=== PATIENT | male | born 1945 | race Caucasian/White ===

== ENCOUNTER 2021-11-09 23:34 | Inpatient (IN) | payer MEDICARE, BC ==
[2021-11-10 01:12] LABS: #Eosinphils 0.4 10x3/uL (0.0-0.5); #Monocytes 0.5 10x3/uL (0.0-1.1); #Neutrophils 3.6 10x3/uL (1.5-8.4); %Eosinophils 7.8 % (0.0-6.0); %Lymphocytes 16.9 % (18.0-47.0); %Monocytes 8.6 % (0.0-10.0); %Neutrophils 66.2 % (40.0-75.0); Hemoglobin 10.8 g/dL (13.5-17.5); Mean Corpuscular HGB CONC 34.2 g/dL (32.0-36.0); Mean Corpuscular Hemoglobin 32.9 pg (27.0-33.0); Mean Corpuscular Volume 96.3 fl (81.2-95.1); Mean Platelet Volume 10.4 fl (7.4-10.4); Platelet Count 154 10x3/uL (150-450); RBC Distribution Width 14.8 % (11.5-14.5); Red Blood Cell (RBC) Count 3.28 10x6/uL (4.32-5.72); White Blood Cell (WBC) Count 5.5 10x3/uL (3.5-10.5)
[2021-11-10 01:19] LABS: INR-International Normal Ratio 1.1; PTT 28.7 sec (22.0-33.0)
[2021-11-10 01:25] LABS: ALT (SGPT) 11 U/L (8-55); AST (SGOT) 24 U/L (5-34); Albumin 3.6 g/dL (3.4-4.8); Alkaline Phosphatase 62 U/L (40-110); Anion Gap 14 mmol/L (10-20); BUN (Urea Nitrogen) 36 mg/dL (8.4-25.7); Bilirubin, Total 0.4 mg/dL (0.2-1.2); Calc. Creatinine Clearance 0 mL/min (70-130); Calcium 8.5 mg/dL (7.8-10.44); Carbon Dioxide 21 mmol/L (23-31); Chloride 111 mmol/L (98-107); Globulin 2.7 g/dL (2.4-3.5); Glucose 219 mg/dL (83-110); Potassium 4.7 mmol/L (3.5-5.1); Protein, Total 6.3 g/dL (5.8-8.1); Sodium 141 mmol/L (136-145)
[2021-11-10] MEDS ORDERED: Lorazepam 2 MG/ML VIAL ONE (02:08)
[2021-11-10] MEDS ORDERED: Pantoprazole 40 MG VIAL ONE (02:08)
[2021-11-10] MEDS ORDERED: Dextrose 5% in Water 1,000 ML IV PRN (02:12)
[2021-11-10] MEDS ORDERED: Guaifenesin DM 100-10/5 ML UDCUP PO PRN (02:12)
[2021-11-10] MEDS ORDERED: Ondansetron PF 4 MG/2 ML Vial IVP PRN (02:12)
[2021-11-10] MEDS ORDERED: Calcium Carbonate 500 MG ChewTAB PO PRN (02:12)
[2021-11-10] MEDS ORDERED: Acetaminophen 325 MG TAB PO PRN (02:12)
[2021-11-10] MEDS ORDERED: Senokot S 8.6-50 MG TAB PO PRN (02:12)
[2021-11-10] MEDS ORDERED: Dextrose 50% Abboject 50 ML SYRINGE SLOW IVP PRN (02:12)
[2021-11-10] MEDS ORDERED: HumaLOG 300 UNITS/3 ML VIAL SC PRN (02:12)
[2021-11-10] MEDS ORDERED: Lactated Ringer's 1,000 ML IV SCH (02:15)
[2021-11-10 03:58] LABS: SARS-CoV-2 NAA Rapid Test Not Detected (NotDetected)
[2021-11-10 04:18] LABS: #Eosinphils 0.4 10x3/uL (0.0-0.5); #Monocytes 0.6 10x3/uL (0.0-1.1); %Basophils 0.2 % (0.0-2.0); %Eosinophils 7.2 % (0.0-6.0); %Lymphocytes 18.1 % (18.0-47.0); %Monocytes 9.3 % (0.0-10.0); Hemoglobin 10.7 g/dL (13.5-17.5); Mean Corpuscular HGB CONC 34.1 g/dL (32.0-36.0); Mean Corpuscular Hemoglobin 33.2 pg (27.0-33.0); Mean Corpuscular Volume 97.5 fl (81.2-95.1); Mean Platelet Volume 10.7 fl (7.4-10.4); Platelet Count 155 10x3/uL (150-450); RBC Distribution Width 14.9 % (11.5-14.5); Red Blood Cell (RBC) Count 3.22 10x6/uL (4.32-5.72); White Blood Cell (WBC) Count 6.1 10x3/uL (3.5-10.5)
[2021-11-10 04:36] LABS: Anion Gap 14 mmol/L (10-20); BUN (Urea Nitrogen) 38 mg/dL (8.4-25.7); Calc. Creatinine Clearance 0 mL/min (70-130); Calcium 8.8 mg/dL (7.8-10.44); Carbon Dioxide 21 mmol/L (23-31); Chloride 111 mmol/L (98-107); Glucose 147 mg/dL (83-110); Iron 73 ug/dL (65-175); Iron Binding Capacity, Total 370 mcg/dL (261-462); Potassium 4.9 mmol/L (3.5-5.1); Sodium 141 mmol/L (136-145)
[2021-11-10 04:44] VITALS: BMI 30.9
[2021-11-10 04:51] LABS: Ferritin 169.49 ng/mL (22-322)
[2021-11-10] MEDS: Sodium Chloride 0.45% 1,000 ML IV SCH (06:27)
[2021-11-10] MEDS ORDERED: Levothyroxine Sodium 75 MCG TAB PO SCH (06:45)
[2021-11-10] MEDS: Loratadine 10 MG TAB PO SCH (08:50)
[2021-11-10] MEDS: Carvedilol 3.125 MG TAB PO SCH ×2 (08:50→18:17)
[2021-11-10] MEDS: Lorazepam 1 MG TAB PO SCH ×2 (08:50→20:57)
[2021-11-10] MEDS: Pantoprazole 40 MG VIAL IVP SCH ×2 (08:50→20:57)
[2021-11-10 09:00] LABS: #Eosinphils 0.4 10x3/uL (0.0-0.5); #Monocytes 0.6 10x3/uL (0.0-1.1); #Neutrophils 3.5 10x3/uL (1.5-8.4); %Basophils 0.2 % (0.0-2.0); %Eosinophils 7.3 % (0.0-6.0); %Lymphocytes 20.3 % (18.0-47.0); %Monocytes 10.9 % (0.0-10.0); Hemoglobin 10.1 g/dL (13.5-17.5); Mean Corpuscular HGB CONC 34.5 g/dL (32.0-36.0); Mean Corpuscular Volume 95.8 fl (81.2-95.1); Mean Platelet Volume 10.9 fl (7.4-10.4); Platelet Count 155 10x3/uL (150-450); RBC Distribution Width 14.7 % (11.5-14.5); Red Blood Cell (RBC) Count 3.06 10x6/uL (4.32-5.72); White Blood Cell (WBC) Count 5.8 10x3/uL (3.5-10.5)
[2021-11-10] MEDS ORDERED: Fenofibrate Nanocrystallized 145 MG TAB PO SCH (09:00)
[2021-11-10] MEDS ORDERED: Furosemide 20 MG TAB PO SCH (09:00)
[2021-11-10 14:36] LABS: Hemoglobin 9.5 g/dL (13.5-17.5)
[2021-11-10 15:34] LABS: #Eosinphils 0.3 10x3/uL (0.0-0.5); #Monocytes 0.5 10x3/uL (0.0-1.1); #Neutrophils 3.4 10x3/uL (1.5-8.4); %Basophils 0.2 % (0.0-2.0); %Eosinophils 6.3 % (0.0-6.0); %Lymphocytes 19.3 % (18.0-47.0); %Monocytes 8.8 % (0.0-10.0); %Neutrophils 65.2 % (40.0-75.0); Mean Corpuscular HGB CONC 33.9 g/dL (32.0-36.0); Mean Corpuscular Hemoglobin 32.8 pg (27.0-33.0); Mean Corpuscular Volume 96.7 fl (81.2-95.1); Mean Platelet Volume 10.7 fl (7.4-10.4); Platelet Count 161 10x3/uL (150-450); RBC Distribution Width 14.6 % (11.5-14.5); Red Blood Cell (RBC) Count 3.05 10x6/uL (4.32-5.72); White Blood Cell (WBC) Count 5.2 10x3/uL (3.5-10.5)
[2021-11-10 20:07] LABS: Hemoglobin 9.7 g/dL (13.5-17.5)
[2021-11-10] MEDS: Montelukast Sodium 10 mg Tablet PO SCH (20:56)
[2021-11-10] MEDS: Fenofibrate Nanocrystallized 145 MG TAB PO SCH (20:57)
[2021-11-10] MEDS: Atorvastatin Calcium 10 MG TAB PO SCH (20:57)
[2021-11-10 21:12] LABS: #Eosinphils 0.3 10x3/uL (0.0-0.5); #Monocytes 0.5 10x3/uL (0.0-1.1); #Neutrophils 3.3 10x3/uL (1.5-8.4); %Eosinophils 6.1 % (0.0-6.0); %Lymphocytes 18.2 % (18.0-47.0); %Monocytes 9.1 % (0.0-10.0); %Neutrophils 66.2 % (40.0-75.0); Hemoglobin 10.2 g/dL (13.5-17.5); Mean Corpuscular HGB CONC 34.6 g/dL (32.0-36.0); Mean Corpuscular Hemoglobin 32.9 pg (27.0-33.0); Mean Corpuscular Volume 95.2 fl (81.2-95.1); Mean Platelet Volume 10.4 fl (7.4-10.4); Platelet Count 142 10x3/uL (150-450); RBC Distribution Width 14.7 % (11.5-14.5)
[2021-11-10] MEDS: Zolpidem Tartrate 5 MG TAB PO PRN (23:44)
[2021-11-11 01:52] LABS: Hemoglobin 9.9 g/dL (13.5-17.5)
[2021-11-11] MEDS ORDERED: GoLYTELY 4,000 ml Bottle PO SCH (05:00)
[2021-11-11] MEDS: Sodium Chloride 0.45% 1,000 ML IV SCH (05:47)
[2021-11-11] MEDS: Levothyroxine Sodium 75 MCG TAB PO SCH (05:55)
[2021-11-11] MEDS: Carvedilol 3.125 MG TAB PO SCH ×2 (08:51→18:54)
[2021-11-11] MEDS: Loratadine 10 MG TAB PO SCH (08:51)
[2021-11-11] MEDS: Pantoprazole 40 MG VIAL IVP SCH ×2 (08:51→21:01)
[2021-11-11] MEDS: Lorazepam 1 MG TAB PO SCH ×2 (08:51→21:00)
[2021-11-11] MEDS ORDERED: FLU VACC QS2021-22(65YR UP)/PF 240 MCG/0.7 ML SYRINGE IM ONE (09:00)
[2021-11-11 10:34] LABS: Hemoglobin 9.7 g/dL (13.5-17.5)
[2021-11-11 13:28] LABS: Hemoglobin 9.8 g/dL (13.5-17.5)
[2021-11-11] MEDS ORDERED: PROPOFOL 20 ML ONE (13:37)
[2021-11-11] MEDS ORDERED: Glycopyrrolate 0.2 MG/ML 5 ML SYRINGE ONE (13:37)
[2021-11-11] MEDS ORDERED: Lidocaine 1% PF 5 ML VIAL ONE (13:37)
[2021-11-11] MEDS ORDERED: Fentanyl 100 MCG/2 ML VIAL ONE (14:17)
[2021-11-11] MEDS ORDERED: PHENYLEPHRINE-NS 100 MCG/ML 10 ML SYRINGE ONE (14:34)
[2021-11-11 19:43] LABS: Hemoglobin 9.3 g/dL (13.5-17.5)
[2021-11-11] MEDS: Zolpidem Tartrate 5 MG TAB PO PRN (20:59)
[2021-11-11] MEDS: Apixaban 5 MG TAB PO SCH (20:59)
[2021-11-11] MEDS: Montelukast Sodium 10 mg Tablet PO SCH (20:59)
[2021-11-11] MEDS: Fenofibrate Nanocrystallized 145 MG TAB PO SCH (20:59)
[2021-11-11] MEDS: Atorvastatin Calcium 10 MG TAB PO SCH (21:00)
[2021-11-11 23:03] LABS: Hemoglobin 9.2 g/dL (13.5-17.5)
[2021-11-12 01:06] LABS: Bilirubin Neg (Negative); Blood, Urine Negative (Negative); Clarity Clear (Clear); Glucose, Urine (Dipstick) Normal (Negative); Ketone, Urine Negative (Negative); Leukocyte Negative (Negative); Nitrite Negative (Negative); Protein, Urine (Dipstick) Negative (Neg-Trace); Urobilinogen Normal mg/dL (Less than 2); pH, Urine 6.5 (5.0-9.0)
[2021-11-12 01:09] LABS: Urine Culture Reflex No No
[2021-11-12 01:12] LABS: Bacteria/HPF None Seen HPF (None Seen); RBC/HPF 0-3 HPF (0-3); Squamous Epithelial 0-3 HPF (0-3); WBC/HPF 0-3 HPF (0-3)
[2021-11-12] MEDS: HYDROcodone/Acetaminophen 5/325 mg Tablet PO PRN ×2 (02:15→05:40)
[2021-11-12 04:16] LABS: #Eosinphils 0.2 10x3/uL (0.0-0.5); #Monocytes 0.5 10x3/uL (0.0-1.1); #Neutrophils 3.2 10x3/uL (1.5-8.4); %Basophils 0.2 % (0.0-2.0); %Eosinophils 4.3 % (0.0-6.0); %Lymphocytes 22.9 % (18.0-47.0); %Monocytes 10.5 % (0.0-10.0); %Neutrophils 61.7 % (40.0-75.0); Mean Corpuscular HGB CONC 33.8 g/dL (32.0-36.0); Mean Corpuscular Hemoglobin 32.5 pg (27.0-33.0); Mean Platelet Volume 10.7 fl (7.4-10.4); Platelet Count 137 10x3/uL (150-450); RBC Distribution Width 14.4 % (11.5-14.5); Red Blood Cell (RBC) Count 2.77 10x6/uL (4.32-5.72); White Blood Cell (WBC) Count 5.2 10x3/uL (3.5-10.5)
[2021-11-12] MEDS: Levothyroxine Sodium 75 MCG TAB PO SCH (05:42)
[2021-11-12 08:27] VITALS: TEMP 97.3
[2021-11-12] MEDS: Lorazepam 1 MG TAB PO SCH (08:54)
[2021-11-12] MEDS: Apixaban 5 MG TAB PO SCH (08:54)
[2021-11-12] MEDS: Loratadine 10 MG TAB PO SCH (08:54)
[2021-11-12] MEDS: Carvedilol 3.125 MG TAB PO SCH (08:54)
[2021-11-12] MEDS: Pantoprazole 40 MG VIAL IVP SCH (08:54)
[2021-11-12 11:54] VITALS: BP 119/59
== END 2021-11-12 14:02 | disposition home or self-care (01) | DRG 378 ==
LOC: CSHERS 23:34 → CSHTELE 11-10 04:41
PROVIDERS: ADMIT Family Medicine; ATTEND Family Medicine
PROC: 0DJ08ZZ Inspection of Upper Intestinal Tract, Via Natural or Artificial Opening Endoscopic (ICD-10-PCS; principal; 2021-11-11)
PROC: 0DJD8ZZ Inspection of Lower Intestinal Tract, Via Natural or Artificial Opening Endoscopic (ICD-10-PCS; 2021-11-11)
DX: K29.51 Unspecified chronic gastritis with bleeding (principal); I50.22 Chronic systolic (congestive) heart failure; D62 Acute posthemorrhagic anemia; I13.0 Hypertensive heart and chronic kidney disease with heart failure and stage 1 through stage 4 chronic kidney disease, or unspecified chronic kidney disease; I48.0 Paroxysmal atrial fibrillation; I25.10 Atherosclerotic heart disease of native coronary artery without angina pectoris; Z20.822 Contact with and (suspected) exposure to COVID-19; E78.5 Hyperlipidemia, unspecified; I25.5 Ischemic cardiomyopathy; E11.22 Type 2 diabetes mellitus with diabetic chronic kidney disease; J44.9 Chronic obstructive pulmonary disease, unspecified; N18.31 Chronic kidney disease, stage 3a; M10.9 Gout, unspecified; E03.9 Hypothyroidism, unspecified; F41.1 Generalized anxiety disorder; Z90.49 Acquired absence of other specified parts of digestive tract; Z95.810 Presence of automatic (implantable) cardiac defibrillator; Z95.2 Presence of prosthetic heart valve; Z95.1 Presence of aortocoronary bypass graft; Z79.82 Long term (current) use of aspirin; Z79.01 Long term (current) use of anticoagulants; Z79.899 Other long term (current) drug therapy; Z79.4 Long term (current) use of insulin; Z79.890 Hormone replacement therapy; Z88.0 Allergy status to penicillin; Z88.2 Allergy status to sulfonamides; Z88.1 Allergy status to other antibiotic agents; Z88.8 Allergy status to other drugs, medicaments and biological substances; Z79.84 Long term (current) use of oral hypoglycemic drugs; Z95.5 Presence of coronary angioplasty implant and graft; Z90.89 Acquired absence of other organs; Z87.891 Personal history of nicotine dependence
CPT/HCPCS: 36415; 36416; 80053; 81001; 82274; 82607; 82728; 82746; 83540; 83550; 85014; 85018; 85025; 85610; 85730; 86850; 86900; 86901; 93005; 94760; C9113; J2060; J2704; J3010; J7120; J7620; U0002

== ENCOUNTER 2022-06-17 21:04 | Emergency (ER) | payer MEDICARE, BC ==
[2022-06-17 22:23] LABS: #Eosinphils 0.5 10x3/uL (0.0-0.5); #Monocytes 0.4 10x3/uL (0.0-1.1); #Neutrophils 1.9 10x3/uL (1.5-8.4); %Basophils 0.3 % (0.0-2.0); %Eosinophils 13.4 % (0.0-6.0); %Lymphocytes 20.5 % (18.0-47.0); %Monocytes 11.1 % (0.0-10.0); %Neutrophils 54.4 % (40.0-75.0); Mean Corpuscular HGB CONC 34.8 g/dL (32.0-36.0); Mean Corpuscular Hemoglobin 32.4 pg (27.0-33.0); Mean Corpuscular Volume 93.2 fl (81.2-95.1); Mean Platelet Volume 10.7 fl (7.4-10.4); Platelet Count 129 10x3/uL (150-450); Red Blood Cell (RBC) Count 3.39 10x6/uL (4.32-5.72); White Blood Cell (WBC) Count 3.5 10x3/uL (3.5-10.5)
[2022-06-17 22:36] LABS: ALT (SGPT) 22 U/L (8-55); AST (SGOT) 36 U/L (5-34); Albumin 3.7 g/dL (3.4-4.8); Alkaline Phosphatase 50 U/L (40-110); Anion Gap 14 mmol/L (10-20); BUN (Urea Nitrogen) 56 mg/dL (8.4-25.7); Bilirubin, Total 0.4 mg/dL (0.2-1.2); Calc. Creatinine Clearance 0 mL/min (70-130); Calcium 8.8 mg/dL (7.8-10.44); Carbon Dioxide 17 mmol/L (23-31); Chloride 111 mmol/L (98-107); Estimated GFR 37; Globulin 2.6 g/dL (2.4-3.5); Glucose 244 mg/dL (83-110); Protein, Total 6.3 g/dL (5.8-8.1); Sodium 137 mmol/L (136-145)
[2022-06-17 23:01] LABS: CKMB 3.9 ng/mL (0-6.6)
[2022-06-18 00:06] LABS: Troponin I 0.033 ng/mL (< 0.028)
== END 2022-06-18 00:10 | disposition home or self-care (01) ==
LOC: CSHERS 21:04
DX: K94.01 Colostomy hemorrhage (principal); E78.00 Pure hypercholesterolemia, unspecified; E11.9 Type 2 diabetes mellitus without complications; I11.0 Hypertensive heart disease with heart failure; I50.9 Heart failure, unspecified; J44.9 Chronic obstructive pulmonary disease, unspecified; Z87.891 Personal history of nicotine dependence; Z79.4 Long term (current) use of insulin; Z79.899 Other long term (current) drug therapy
CPT/HCPCS: 36415; 71045; 80053; 82553; 83880; 84484; 85025; 93005

== ENCOUNTER 2022-07-02 10:12 | Emergency (ER) | payer MEDICARE, BC ==
[2022-07-02] MEDS ORDERED: Pantoprazole 40 MG VIAL ONE (11:22)
[2022-07-02 11:24] LABS: #Eosinphils 0.3 10x3/uL (0.0-0.5); #Monocytes 0.4 10x3/uL (0.0-1.1); #Neutrophils 2.5 10x3/uL (1.5-8.4); %Basophils 0.3 % (0.0-2.0); %Eosinophils 8.6 % (0.0-6.0); %Lymphocytes 15.9 % (18.0-47.0); %Monocytes 9.9 % (0.0-10.0); Hemoglobin 10.1 g/dL (13.5-17.5); Mean Corpuscular Hemoglobin 32.3 pg (27.0-33.0); Mean Corpuscular Volume 94.9 fl (81.2-95.1); Platelet Count 168 10x3/uL (150-450); RBC Distribution Width 13.3 % (11.5-14.5); Red Blood Cell (RBC) Count 3.13 10x6/uL (4.32-5.72); White Blood Cell (WBC) Count 3.8 10x3/uL (3.5-10.5)
[2022-07-02 11:42] LABS: ALT (SGPT) 17 U/L (8-55); AST (SGOT) 26 U/L (5-34); Albumin 4.1 g/dL (3.4-4.8); Alkaline Phosphatase 52 U/L (40-110); Anion Gap 12 mmol/L (10-20); BUN (Urea Nitrogen) 53 mg/dL (8.4-25.7); Bilirubin, Total 0.5 mg/dL (0.2-1.2); CK (CPK) 75 U/L (30-200); Calc. Creatinine Clearance 0 mL/min (70-130); Calcium 9.5 mg/dL (7.8-10.44); Carbon Dioxide 20 mmol/L (23-31); Chloride 112 mmol/L (98-107); Estimated GFR 38; Globulin 2.9 g/dL (2.4-3.5); Glucose 183 mg/dL (83-110); Lipase 33 U/L (8-78); Potassium 4.3 mmol/L (3.5-5.1); Sodium 140 mmol/L (136-145)
== END 2022-07-02 12:35 | disposition home or self-care (01) ==
LOC: CSHERS 10:12
DX: K94.01 Colostomy hemorrhage (principal); E78.00 Pure hypercholesterolemia, unspecified; J44.9 Chronic obstructive pulmonary disease, unspecified; E11.9 Type 2 diabetes mellitus without complications; I11.0 Hypertensive heart disease with heart failure; I50.9 Heart failure, unspecified; Z87.891 Personal history of nicotine dependence
CPT/HCPCS: 80053; 82550; 83690; 85025; 86850; 86900; 86901; 96374; C9113

== ENCOUNTER 2023-09-05 17:26 | Inpatient (IN) | payer MEDICARE, BC ==
[2023-09-05] MEDS ORDERED: Acetaminophen 325 MG TAB PO PRN (18:03)
[2023-09-05] MEDS ORDERED: Dextrose 5% in Water 1,000 ML IV PRN (18:10)
[2023-09-05] MEDS ORDERED: Glucagon 1 MG/ML KIT IM PRN (18:10)
[2023-09-05] MEDS ORDERED: Dextrose 50% Abboject 50 ML SYRINGE SLOW IVP PRN (18:10)
[2023-09-05] MEDS ORDERED: HumaLOG 300 UNITS/3 ML VIAL SC PRN ×2 (18:10)
[2023-09-05 18:20] VITALS: BMI 30.7
[2023-09-05 18:52] LABS: #Eosinphils 0.3 10x3/uL (0.0-0.5); #Monocytes 0.5 10x3/uL (0.0-1.1); #Neutrophils 2.6 10x3/uL (1.5-8.4); %Basophils 0.5 % (0.0-2.0); %Eosinophils 6.5 % (0.0-6.0); %Lymphocytes 20.3 % (18.0-47.0); %Monocytes 10.9 % (0.0-10.0); %Neutrophils 61.6 % (40.0-75.0); Hematocrit 35.6 % (38.8-50.0); Hemoglobin 12.1 g/dL (13.5-17.5); Mean Corpuscular Hemoglobin 32.1 pg (27.0-33.0); Mean Corpuscular Volume 94.4 fl (81.2-95.1); Mean Platelet Volume 11.5 fl (7.4-10.4); Platelet Count 145 10x3/uL (150-450); RBC Distribution Width 14.4 % (11.5-14.5); Red Blood Cell (RBC) Count 3.77 10x6/uL (4.32-5.72); White Blood Cell (WBC) Count 4.1 10x3/uL (3.5-10.5)
[2023-09-05 18:59] LABS: ALT (SGPT) 12 U/L (8-55); AST (SGOT) 27 U/L (5-34); Albumin 3.8 g/dL (3.4-4.8); Alkaline Phosphatase 82 U/L (40-110); Anion Gap 14 mmol/L (10-20); BUN (Urea Nitrogen) 50 mg/dL (8.4-25.7); Bilirubin, Total 0.5 mg/dL (0.2-1.2); Calc. Creatinine Clearance 45 mL/min (70-130); Carbon Dioxide 22 mmol/L (23-31); Chloride 109 mmol/L (98-107); Estimated GFR 38; Globulin 3.3 g/dL (2.4-3.5); Glucose 268 mg/dL (83-110); Magnesium 1.6 mg/dL (1.6-2.6); Potassium 4.4 mmol/L (3.5-5.1); Protein, Total 7.1 g/dL (5.8-8.1); Sodium 141 mmol/L (136-145)
[2023-09-05 19:05] LABS: Troponin I 0.171 ng/mL (< 0.028)
[2023-09-05] MEDS ORDERED: Furosemide 20 MG/2 ML VIAL SLOW IVP SCH (21:30)
[2023-09-05] MEDS ORDERED: Lorazepam 1 MG TAB PO PRN (21:31)
[2023-09-05] MEDS ORDERED: Zolpidem Tartrate 5 MG TAB PO PRN (21:31)
[2023-09-06 05:42] LABS: #Eosinphils 0.3 10x3/uL (0.0-0.5); #Monocytes 0.6 10x3/uL (0.0-1.1); #Neutrophils 2.9 10x3/uL (1.5-8.4); %Basophils 0.2 % (0.0-2.0); %Eosinophils 6.8 % (0.0-6.0); %Lymphocytes 21.9 % (18.0-47.0); %Monocytes 11.4 % (0.0-10.0); %Neutrophils 59.5 % (40.0-75.0); Anion Gap 15 mmol/L (10-20); BUN (Urea Nitrogen) 49 mg/dL (8.4-25.7); Calc. Creatinine Clearance 54 mL/min (70-130); Calcium 9.2 mg/dL (7.8-10.44); Carbon Dioxide 22 mmol/L (23-31); Chloride 111 mmol/L (98-107); Estimated GFR 48; Glucose 62 mg/dL (83-110); Hematocrit 35.4 % (38.8-50.0); Hemoglobin 11.8 g/dL (13.5-17.5); Mean Corpuscular HGB CONC 33.3 g/dL (32.0-36.0); Mean Corpuscular Volume 92.9 fl (81.2-95.1); Mean Platelet Volume 11.3 fl (7.4-10.4); Platelet Count 154 10x3/uL (150-450); RBC Distribution Width 14.3 % (11.5-14.5); Red Blood Cell (RBC) Count 3.81 10x6/uL (4.32-5.72); Sodium 144 mmol/L (136-145); White Blood Cell (WBC) Count 4.8 10x3/uL (3.5-10.5)
[2023-09-06] MEDS ORDERED: Ipratropium/Albuterol 3 ML NEB NEB PRN (07:44)
[2023-09-06] MEDS ORDERED: Carvedilol 3.125 MG TAB PO SCH (08:00)
[2023-09-06 08:34] LABS: Troponin I 0.183 ng/mL (< 0.028)
[2023-09-06] MEDS ORDERED: Furosemide 20 MG/2 ML VIAL SLOW IVP SCH (09:00)
[2023-09-06] MEDS ORDERED: Losartan 50 MG TAB PO SCH (09:00)
[2023-09-06] MEDS ORDERED: Apixaban 2.5 MG TAB PO SCH (09:00)
[2023-09-06] MEDS ORDERED: Aspirin Chewable 81 MG TAB PO SCH (09:00)
[2023-09-06] MEDS ORDERED: Cholecalciferol 1,000 UNITS (25 MCG) TAB PO SCH (09:00)
[2023-09-06] MEDS ORDERED: Finasteride 5 MG TAB PO SCH (09:00)
[2023-09-06] MEDS ORDERED: Loratadine 10 MG TAB PO SCH (09:00)
[2023-09-06] MEDS ORDERED: Fluticasone Propionate Nasal Spray 16 gm Bottle NASAL SCH (09:00)
[2023-09-06] MEDS ORDERED: Montelukast Sodium 10 mg Tablet PO SCH ×2 (09:00→21:00)
[2023-09-06] MEDS ORDERED: Furosemide 40 MG/4 ML VIAL SLOW IVP SCH (15:15)
[2023-09-06 16:34] VITALS: BP 108/67; TEMP 98.1
[2023-09-06] MEDS ORDERED: Atorvastatin Calcium 10 MG TAB PO SCH (21:00)
[2023-09-06] MEDS ORDERED: Zolpidem Tartrate 5 MG TAB PO SCH (21:00)
[2023-09-07] MEDS ORDERED: Levothyroxine Sodium 75 MCG TAB PO SCH (06:00)
[2023-09-07] MEDS ORDERED: Ferrous Sulfate 325 MG TAB PO SCH (08:00)
[2023-09-07] MEDS ORDERED: Multivit, Therapeutic 1 TAB PO SCH (09:00)
== END 2023-09-06 17:30 | disposition home or self-care (01) | DRG 293 ==
LOC: INTOOBSV 17:26 → CSHTELE 17:26 → OBSVTOIN 18:03
PROVIDERS: ADMIT Internal Medicine; ATTEND Internal Medicine
DX: I50.23 Acute on chronic systolic (congestive) heart failure (principal); E78.5 Hyperlipidemia, unspecified; F41.9 Anxiety disorder, unspecified; N18.9 Chronic kidney disease, unspecified; E11.22 Type 2 diabetes mellitus with diabetic chronic kidney disease; I25.10 Atherosclerotic heart disease of native coronary artery without angina pectoris; I25.5 Ischemic cardiomyopathy; J44.9 Chronic obstructive pulmonary disease, unspecified; I48.0 Paroxysmal atrial fibrillation; E03.9 Hypothyroidism, unspecified; K21.9 Gastro-esophageal reflux disease without esophagitis; I12.9 Hypertensive chronic kidney disease with stage 1 through stage 4 chronic kidney disease, or unspecified chronic kidney disease; I35.0 Nonrheumatic aortic (valve) stenosis; Z95.810 Presence of automatic (implantable) cardiac defibrillator; Z88.0 Allergy status to penicillin; Z88.2 Allergy status to sulfonamides; Z88.1 Allergy status to other antibiotic agents; Z95.1 Presence of aortocoronary bypass graft; Z95.2 Presence of prosthetic heart valve; Z79.4 Long term (current) use of insulin; Z79.899 Other long term (current) drug therapy; Z79.51 Long term (current) use of inhaled steroids; Z79.01 Long term (current) use of anticoagulants; I25.2 Old myocardial infarction
CPT/HCPCS: 36415; 36416; 80048; 80053; 83735; 83880; 84484; 85025; 93005; 93010; 93306; 94760; J1815; J1940

== ENCOUNTER 2023-10-09 23:43 | Inpatient (IN) | payer MEDICARE, BC ==
[2023-10-10 00:32] LABS: #Eosinphils 0.4 10x3/uL (0.0-0.5); #Monocytes 0.6 10x3/uL (0.0-1.1); #Neutrophils 4.2 10x3/uL (1.5-8.4); %Basophils 0.2 % (0.0-2.0); %Eosinophils 6.7 % (0.0-6.0); %Monocytes 9.3 % (0.0-10.0); Hematocrit 35.2 % (38.8-50.0); Mean Corpuscular HGB CONC 34.1 g/dL (32.0-36.0); Mean Corpuscular Hemoglobin 31.4 pg (27.0-33.0); Mean Corpuscular Volume 92.1 fl (81.2-95.1); Mean Platelet Volume 10.8 fl (7.4-10.4); Platelet Count 187 10x3/uL (150-450); RBC Distribution Width 15.2 % (11.5-14.5); Red Blood Cell (RBC) Count 3.82 10x6/uL (4.32-5.72); White Blood Cell (WBC) Count 6.1 10x3/uL (3.5-10.5)
[2023-10-10 00:42] LABS: ALT (SGPT) 16 U/L (8-55); AST (SGOT) 35 U/L (5-34); Albumin 3.8 g/dL (3.4-4.8); Alkaline Phosphatase 76 U/L (40-110); Anion Gap 17 mmol/L (10-20); BUN (Urea Nitrogen) 48 mg/dL (8.4-25.7); Bilirubin, Total 0.5 mg/dL (0.2-1.2); Calc. Creatinine Clearance 0 mL/min (70-130); Calcium 9.5 mg/dL (7.8-10.44); Carbon Dioxide 16 mmol/L (23-31); Chloride 109 mmol/L (98-107); Estimated GFR 33; Globulin 3.4 g/dL (2.4-3.5); Glucose 137 mg/dL (83-110); Magnesium 1.5 mg/dL (1.6-2.6); Potassium 4.1 mmol/L (3.5-5.1); Protein, Total 7.2 g/dL (5.8-8.1); Sodium 138 mmol/L (136-145)
[2023-10-10 00:49] LABS: Troponin I 0.197 ng/mL (< 0.028)
[2023-10-10] MEDS ORDERED: Magnesium 2 GM/50 ML BAG (IN WATER) ONE (01:02)
[2023-10-10] MEDS ORDERED: Dextrose 50% Abboject 50 ML SYRINGE SLOW IVP PRN (02:41)
[2023-10-10] MEDS ORDERED: Acetaminophen 325 MG TAB PO PRN (02:41)
[2023-10-10] MEDS ORDERED: HumaLOG 300 UNITS/3 ML VIAL SC PRN (02:41)
[2023-10-10] MEDS ORDERED: Glucagon 1 MG/ML KIT IM PRN (02:41)
[2023-10-10] MEDS ORDERED: Dextrose 5% in Water 1,000 ML IV PRN (02:41)
[2023-10-10] MEDS ORDERED: Calcium Carbonate 500 MG ChewTAB PO PRN (02:41)
[2023-10-10] MEDS ORDERED: Senokot S 8.6-50 MG TAB PO PRN (02:41)
[2023-10-10] MEDS ORDERED: Ipratropium/Albuterol 3 ML NEB NEB PRN (02:53)
[2023-10-10 04:17] LABS: #Eosinphils 0.4 10x3/uL (0.0-0.5); #Monocytes 0.6 10x3/uL (0.0-1.1); #Neutrophils 5.5 10x3/uL (1.5-8.4); %Basophils 0.1 % (0.0-2.0); %Eosinophils 4.7 % (0.0-6.0); %Lymphocytes 11.6 % (18.0-47.0); %Monocytes 8.5 % (0.0-10.0); %Neutrophils 74.4 % (40.0-75.0); Hematocrit 34.4 % (38.8-50.0); Hemoglobin 12.1 g/dL (13.5-17.5); Mean Corpuscular HGB CONC 35.2 g/dL (32.0-36.0); Mean Corpuscular Hemoglobin 31.9 pg (27.0-33.0); Mean Corpuscular Volume 90.8 fl (81.2-95.1); Mean Platelet Volume 10.5 fl (7.4-10.4); Platelet Count 188 10x3/uL (150-450); RBC Distribution Width 15.1 % (11.5-14.5); Red Blood Cell (RBC) Count 3.79 10x6/uL (4.32-5.72); White Blood Cell (WBC) Count 7.4 10x3/uL (3.5-10.5)
[2023-10-10 04:22] LABS: Anion Gap 16 mmol/L (10-20); BUN (Urea Nitrogen) 47 mg/dL (8.4-25.7); Calc. Creatinine Clearance 0 mL/min (70-130); Calcium 9.8 mg/dL (7.8-10.44); Carbon Dioxide 18 mmol/L (23-31); Chloride 109 mmol/L (98-107); Estimated GFR 38; Glucose 112 mg/dL (83-110); Magnesium 2.1 mg/dL (1.6-2.6); Sodium 139 mmol/L (136-145)
[2023-10-10 04:35] VITALS: BMI 31.3
[2023-10-10] MEDS ORDERED: Lactated Ringer's 500 ML IV SCH (05:15)
[2023-10-10] MEDS ORDERED: Levothyroxine Sodium 75 MCG TAB PO SCH (06:00)
[2023-10-10] MEDS ORDERED: Ipratropium/Albuterol 3 ML NEB NEB SCH (07:00)
[2023-10-10] MEDS ORDERED: Carvedilol 3.125 MG TAB PO SCH (08:00)
[2023-10-10 08:38] LABS: Troponin I 0.189 ng/mL (< 0.028)
[2023-10-10] MEDS ORDERED: Ferrous Sulfate 325 MG TAB PO SCH (09:00)
[2023-10-10] MEDS ORDERED: Cholecalciferol 1,000 UNITS (25 MCG) TAB PO SCH (09:00)
[2023-10-10] MEDS ORDERED: Apixaban 2.5 MG TAB PO SCH (09:00)
[2023-10-10] MEDS ORDERED: Finasteride 5 MG TAB PO SCH (09:00)
[2023-10-10] MEDS ORDERED: Multivit, Therapeutic 1 TAB PO SCH (09:00)
[2023-10-10] MEDS ORDERED: Pantoprazole 40 MG VIAL IVP SCH (09:00)
[2023-10-10] MEDS ORDERED: Furosemide 40 MG TAB PO SCH (09:00)
[2023-10-10] MEDS ORDERED: glyBURIDE 5 MG TAB PO SCH (09:00)
[2023-10-10] MEDS ORDERED: Loratadine 10 MG TAB PO SCH (09:00)
[2023-10-10] MEDS: Morphine 2 MG/ML VIAL SLOW IVP PRN (10:27)
[2023-10-10] MEDS: Ondansetron PF 4 MG/2 ML Vial IVP PRN ×2 (14:37→20:29)
[2023-10-10] MEDS: Morphine 4 MG/ML VIAL SLOW IVP PRN ×2 (14:37→20:26)
[2023-10-10 16:15] LABS: Bilirubin Neg (Negative); Blood, Urine Negative (Negative); Clarity Clear (Clear); Glucose, Urine (Dipstick) Normal (Negative); Ketone, Urine Negative (Negative); Leukocyte Negative (Negative); Nitrite Negative (Negative); Protein, Urine (Dipstick) Negative (Neg-Trace); Specific Gravity, Urine 1.015 (1.005-1.030); Urobilinogen Normal mg/dL (Less than 2)
[2023-10-10] MEDS ORDERED: Lidocaine Viscous Sol 2% 15 ml UD Cup SSP SCH (17:00)
[2023-10-10 17:31] LABS: Bacteria/HPF Rare-Few HPF (None Seen); RBC/HPF None Seen HPF (0-3); Squamous Epithelial 0-3 HPF (0-3); WBC/HPF 0-3 HPF (0-3)
[2023-10-10] MEDS: Mometasone Furoate 30 PUFF 220 MCG INH SCH (20:55)
[2023-10-10] MEDS ORDERED: Fenofibrate Nanocrystallized 145 MG TAB PO SCH (21:00)
[2023-10-10] MEDS ORDERED: Montelukast Sodium 10 mg Tablet PO SCH (21:00)
[2023-10-10] MEDS ORDERED: Zolpidem Tartrate 5 MG TAB PO SCH (21:00)
[2023-10-10] MEDS ORDERED: Alogliptin 25 MG TAB PO SCH (21:00)
[2023-10-10] MEDS ORDERED: Lorazepam 1 MG TAB PO SCH (21:00)
[2023-10-10] MEDS ORDERED: Atorvastatin Calcium 10 MG TAB PO SCH (21:00)
[2023-10-11] MEDS: Ondansetron PF 4 MG/2 ML Vial IVP PRN (03:41)
[2023-10-11 03:58] LABS: #Monocytes 0.5 10x3/uL (0.0-1.1); #Neutrophils 9.8 10x3/uL (1.5-8.4); %Basophils 0.1 % (0.0-2.0); %Eosinophils 0.3 % (0.0-6.0); %Lymphocytes 6.2 % (18.0-47.0); %Monocytes 4.9 % (0.0-10.0); Hematocrit 38.1 % (38.8-50.0); Hemoglobin 13.3 g/dL (13.5-17.5); Mean Corpuscular HGB CONC 34.9 g/dL (32.0-36.0); Mean Corpuscular Hemoglobin 31.8 pg (27.0-33.0); Mean Corpuscular Volume 91.1 fl (81.2-95.1); Mean Platelet Volume 10.8 fl (7.4-10.4); Platelet Count 209 10x3/uL (150-450); RBC Distribution Width 15.2 % (11.5-14.5); Red Blood Cell (RBC) Count 4.18 10x6/uL (4.32-5.72); White Blood Cell (WBC) Count 11.1 10x3/uL (3.5-10.5)
[2023-10-11 04:21] LABS: Anion Gap 22 mmol/L (10-20); BUN (Urea Nitrogen) 58 mg/dL (8.4-25.7); Calc. Creatinine Clearance 31 mL/min (70-130); Carbon Dioxide 20 mmol/L (23-31); Chloride 101 mmol/L (98-107); Estimated GFR 26; Glucose 212 mg/dL (83-110); Potassium 3.9 mmol/L (3.5-5.1); Sodium 139 mmol/L (136-145)
[2023-10-11 04:29] LABS: Troponin I 0.193 ng/mL (< 0.028)
[2023-10-11] MEDS: Morphine 2 MG/ML VIAL SLOW IVP PRN (11:20)
[2023-10-11] MEDS ORDERED: Digoxin 0.5 MG/2 ML AMP SLOW IVP SCH ×2 (15:15→18:30)
[2023-10-11 16:20] LABS: #Eosinphils 0.1 10x3/uL (0.0-0.5); #Monocytes 0.7 10x3/uL (0.0-1.1); #Neutrophils 6.2 10x3/uL (1.5-8.4); %Eosinophils 0.6 % (0.0-6.0); %Lymphocytes 9.6 % (18.0-47.0); %Monocytes 9.5 % (0.0-10.0); Hematocrit 39.5 % (38.8-50.0); Hemoglobin 13.9 g/dL (13.5-17.5); Mean Corpuscular HGB CONC 35.2 g/dL (32.0-36.0); Mean Platelet Volume 11.1 fl (7.4-10.4); Platelet Count 207 10x3/uL (150-450); RBC Distribution Width 15.4 % (11.5-14.5); Red Blood Cell (RBC) Count 4.34 10x6/uL (4.32-5.72); White Blood Cell (WBC) Count 7.8 10x3/uL (3.5-10.5)
[2023-10-11 16:45] LABS: ALT (SGPT) 17 U/L (8-55); AST (SGOT) 38 U/L (5-34); Albumin 3.8 g/dL (3.4-4.8); Alkaline Phosphatase 55 U/L (40-110); Anion Gap 24 mmol/L (10-20); BUN (Urea Nitrogen) 72 mg/dL (8.4-25.7); Bilirubin, Total 0.7 mg/dL (0.2-1.2); Calc. Creatinine Clearance 22 mL/min (70-130); Calcium 10.1 mg/dL (7.8-10.44); Carbon Dioxide 21 mmol/L (23-31); Chloride 101 mmol/L (98-107); Estimated GFR 18; Globulin 3.7 g/dL (2.4-3.5); Glucose 212 mg/dL (83-110); Potassium 4.2 mmol/L (3.5-5.1); Protein, Total 7.5 g/dL (5.8-8.1); Sodium 142 mmol/L (136-145)
[2023-10-11] MEDS ORDERED: Pantoprazole 40 MG VIAL IVP SCH (18:30)
[2023-10-11] MEDS: Mometasone Furoate 30 PUFF 220 MCG INH SCH (19:30)
[2023-10-11] MEDS: Lactated Ringer's 1,000 ML IV SCH ×2 (20:51→20:52)
[2023-10-12] MEDS ORDERED: Metoprolol Tartrate 5 MG/5 ML VIAL IVP PRN (08:23)
[2023-10-12] MEDS: Digoxin 0.125 MG TAB PO SCH (08:27)
[2023-10-12] MEDS ORDERED: Sodium Chloride 0.9% 1,000 ML IV SCH (08:30)
[2023-10-12] MEDS: Metoprolol Tartrate 5 MG/5 ML VIAL IVP SCH ×4 (08:52→23:31)
[2023-10-12] MEDS ORDERED: Lorazepam 2 MG/ML VIAL SLOW IVP SCH ×2 (10:15→22:30)
[2023-10-12] MEDS: Sodium Chloride 0.9% 1,000 ML IV SCH ×2 (12:24→16:46)
[2023-10-12] MEDS: Mometasone Furoate 30 PUFF 220 MCG INH SCH (19:17)
[2023-10-12] MEDS ORDERED: Acetaminophen 325 MG TAB PO SCH (22:00)
[2023-10-12] MEDS ORDERED: diphenhydrAMINE 25 MG CAP PO SCH (22:00)
[2023-10-12] MEDS: Ondansetron PF 4 MG/2 ML Vial IVP PRN (23:16)
[2023-10-13] MEDS: Metoprolol Tartrate 5 MG/5 ML VIAL IVP SCH ×4 (03:17→22:21)
[2023-10-13 05:01] LABS: #Monocytes 0.7 10x3/uL (0.0-1.1); #Neutrophils 3.8 10x3/uL (1.5-8.4); %Basophils 0.2 % (0.0-2.0); %Eosinophils 0.8 % (0.0-6.0); %Lymphocytes 11.8 % (18.0-47.0); %Monocytes 12.8 % (0.0-10.0); %Neutrophils 74.2 % (40.0-75.0); Hematocrit 37.8 % (38.8-50.0); Mean Corpuscular HGB CONC 34.4 g/dL (32.0-36.0); Mean Corpuscular Hemoglobin 31.5 pg (27.0-33.0); Mean Corpuscular Volume 91.5 fl (81.2-95.1); Mean Platelet Volume 11.1 fl (7.4-10.4); Platelet Count 187 10x3/uL (150-450); RBC Distribution Width 15.1 % (11.5-14.5); Red Blood Cell (RBC) Count 4.13 10x6/uL (4.32-5.72); White Blood Cell (WBC) Count 5.2 10x3/uL (3.5-10.5)
[2023-10-13 05:15] LABS: Anion Gap 23 mmol/L (10-20); BUN (Urea Nitrogen) 108 mg/dL (8.4-25.7); Calc. Creatinine Clearance 20 mL/min (70-130); Carbon Dioxide 22 mmol/L (23-31); Chloride 100 mmol/L (98-107); Estimated GFR 16; Glucose 247 mg/dL (83-110); Potassium 4.1 mmol/L (3.5-5.1); Sodium 141 mmol/L (136-145)
[2023-10-13] MEDS ORDERED: Rocuronium Bromide 10 MG/ML (10ML VIAL) ONE (07:44)
[2023-10-13] MEDS ORDERED: cefOXitin 2 GM in Sodium Chloride 0.9% 100 ML IVPB SCH (09:00)
[2023-10-13] MEDS: Digoxin 0.125 MG TAB PO SCH (12:08)
[2023-10-13] MEDS ORDERED: Acetaminophen 500 MG TAB PO PRN (13:06)
[2023-10-13 13:11] LABS: Hemoglobin A1c 8.6 % (4.0-6.0)
[2023-10-13] MEDS: Ventolin HFA Inhaler 60 PUFF INHALER INH SCH ×2 (15:45→20:10)
[2023-10-13] MEDS: Sodium Chloride 0.45% 1,000 ML IV SCH ×2 (17:31→23:43)
[2023-10-13] MEDS: Mometasone Furoate 30 PUFF 220 MCG INH SCH (20:10)
[2023-10-13] MEDS ORDERED: NIACIN 750 MG PO SCH (21:00)
[2023-10-13] MEDS: Montelukast Sodium 10 mg Tablet PO SCH (22:18)
[2023-10-13] MEDS ORDERED: Lorazepam 1 MG TAB PO SCH (23:30)
[2023-10-14 04:45] LABS: #Eosinphils 0.2 10x3/uL (0.0-0.5); #Monocytes 0.7 10x3/uL (0.0-1.1); #Neutrophils 2.7 10x3/uL (1.5-8.4); %Eosinophils 3.7 % (0.0-6.0); %Lymphocytes 16.5 % (18.0-47.0); %Neutrophils 62.6 % (40.0-75.0); Hematocrit 34.2 % (38.8-50.0); Hemoglobin 11.7 g/dL (13.5-17.5); Mean Corpuscular HGB CONC 34.2 g/dL (32.0-36.0); Mean Corpuscular Volume 90.7 fl (81.2-95.1); Platelet Count 145 10x3/uL (150-450); RBC Distribution Width 15.1 % (11.5-14.5); Red Blood Cell (RBC) Count 3.77 10x6/uL (4.32-5.72); White Blood Cell (WBC) Count 4.3 10x3/uL (3.5-10.5)
[2023-10-14] MEDS: Metoprolol Tartrate 5 MG/5 ML VIAL IVP SCH ×4 (04:47→20:58)
[2023-10-14] MEDS: Sodium Chloride 0.45% 1,000 ML IV SCH ×3 (04:56→20:58)
[2023-10-14 05:37] LABS: Anion Gap 19 mmol/L (10-20); BUN (Urea Nitrogen) 104 mg/dL (8.4-25.7); Calc. Creatinine Clearance 29 mL/min (70-130); Calcium 7.9 mg/dL (7.8-10.44); Carbon Dioxide 19 mmol/L (23-31); Chloride 104 mmol/L (98-107); Estimated GFR 24; Glucose 79 mg/dL (83-110); Potassium 3.3 mmol/L (3.5-5.1); Sodium 139 mmol/L (136-145)
[2023-10-14] MEDS: Ventolin HFA Inhaler 60 PUFF INHALER INH SCH ×4 (06:18→20:05)
[2023-10-14 08:12] LABS: Bilirubin Neg (Negative); Blood, Urine Negative (Negative); Glucose, Urine (Dipstick) Normal (Negative); Ketone, Urine Negative (Negative); Leukocyte Negative (Negative); Nitrite Negative (Negative); Protein, Urine (Dipstick) Negative (Neg-Trace); Specific Gravity, Urine 1.015 (1.005-1.030); Urobilinogen Normal mg/dL (Less than 2)
[2023-10-14 08:15] LABS: Clarity Clear (Clear)
[2023-10-14 08:27] LABS: Bacteria/HPF None Seen HPF (None Seen); Creatinine, Urine 120.48 mg/dL (63-166); RBC/HPF None Seen HPF (0-3); Squamous Epithelial 0-3 HPF (0-3); WBC/HPF None Seen HPF (0-3)
[2023-10-14] MEDS: Lorazepam 1 MG TAB PO SCH (08:51)
[2023-10-14] MEDS: Pregabalin 75 MG CAP PO SCH (08:52)
[2023-10-14] MEDS: Digoxin 0.125 MG TAB PO SCH (08:52)
[2023-10-14] MEDS ORDERED: Losartan 50 MG TAB PO SCH (09:00)
[2023-10-14 13:15] LABS: Sodium, Urine Less than 20 mmol/L (Not Available)
[2023-10-14] MEDS: Mometasone Furoate 30 PUFF 220 MCG INH SCH (20:05)
[2023-10-14] MEDS: Montelukast Sodium 10 mg Tablet PO SCH (20:58)
[2023-10-15] MEDS: Metoprolol Tartrate 5 MG/5 ML VIAL IVP SCH ×2 (03:34→08:54)
[2023-10-15] MEDS: Sodium Chloride 0.45% 1,000 ML IV SCH (04:24)
[2023-10-15 05:55] LABS: #Eosinphils 0.1 10x3/uL (0.0-0.5); #Monocytes 0.7 10x3/uL (0.0-1.1); #Neutrophils 3.5 10x3/uL (1.5-8.4); %Eosinophils 2.2 % (0.0-6.0); %Lymphocytes 12.3 % (18.0-47.0); %Monocytes 14.9 % (0.0-10.0); %Neutrophils 70.2 % (40.0-75.0); Hematocrit 30.6 % (38.8-50.0); Hemoglobin 10.3 g/dL (13.5-17.5); Mean Corpuscular HGB CONC 33.7 g/dL (32.0-36.0); Mean Corpuscular Hemoglobin 30.8 pg (27.0-33.0); Mean Corpuscular Volume 91.6 fl (81.2-95.1); Mean Platelet Volume 10.7 fl (7.4-10.4); Platelet Count 147 10x3/uL (150-450); RBC Distribution Width 15.1 % (11.5-14.5); Red Blood Cell (RBC) Count 3.34 10x6/uL (4.32-5.72)
[2023-10-15 06:02] LABS: Anion Gap 13 mmol/L (10-20); BUN (Urea Nitrogen) 79 mg/dL (8.4-25.7); Calc. Creatinine Clearance 45 mL/min (70-130); Carbon Dioxide 21 mmol/L (23-31); Chloride 107 mmol/L (98-107); Estimated GFR 41; Glucose 127 mg/dL (83-110); Potassium 3.5 mmol/L (3.5-5.1); Sodium 137 mmol/L (136-145)
[2023-10-15] MEDS: Ventolin HFA Inhaler 60 PUFF INHALER INH SCH ×3 (06:54→14:46)
[2023-10-15] MEDS ORDERED: Sodium Chloride 0.45% 1,000 ML IV SCH (08:46)
[2023-10-15] MEDS: Digoxin 0.125 MG TAB PO SCH (08:53)
[2023-10-15] MEDS: Lorazepam 1 MG TAB PO SCH (08:53)
[2023-10-15] MEDS: Pregabalin 75 MG CAP PO SCH (08:53)
[2023-10-15] MEDS ORDERED: Carvedilol 3.125 MG TAB PO SCH (17:00)
[2023-10-15 17:50] VITALS: BP 106/62; TEMP 98.2
== END 2023-10-15 17:36 | disposition home or self-care (01) | DRG 309 ==
LOC: CSHERS 23:43 → CSHTELE 10-10 04:20
PROVIDERS: ADMIT Student in an Organized Health Care Education/Training Program; ATTEND Family Medicine
DX: I48.0 Paroxysmal atrial fibrillation (principal); I13.0 Hypertensive heart and chronic kidney disease with heart failure and stage 1 through stage 4 chronic kidney disease, or unspecified chronic kidney disease; K56.50 Intestinal adhesions [bands], unspecified as to partial versus complete obstruction; N17.9 Acute kidney failure, unspecified; E83.42 Hypomagnesemia; N18.30 Chronic kidney disease, stage 3 unspecified; I25.10 Atherosclerotic heart disease of native coronary artery without angina pectoris; I25.5 Ischemic cardiomyopathy; J44.9 Chronic obstructive pulmonary disease, unspecified; E03.9 Hypothyroidism, unspecified; E78.5 Hyperlipidemia, unspecified; Z88.0 Allergy status to penicillin; Z88.2 Allergy status to sulfonamides; Z88.1 Allergy status to other antibiotic agents; Z79.899 Other long term (current) drug therapy; E11.22 Type 2 diabetes mellitus with diabetic chronic kidney disease; Z98.890 Other specified postprocedural states; I50.9 Heart failure, unspecified; I49.5 Sick sinus syndrome
CPT/HCPCS: 36415; 36416; 71045; 71046; 74018; 74019; 74022; 74176; 74250; 80048; 80053; 81001; 82570; 83036; 83735; 83880; 84300; 84443; 84484; 85025; 93005; 94760; 94762; C9113; J1160; J1650; J1815; J2060; J2270; J2272; J2405; J3475; J7050; J7120

== ENCOUNTER 2023-10-30 23:08 | Observation (INO) | payer BC, MEDICARE ==
[2023-10-30] MEDS ORDERED: Magnesium 2 GM/50 ML BAG (IN WATER) ONE (23:32)
[2023-10-30 23:56] LABS: #Eosinphils 0.2 10x3/uL (0.0-0.5); #Monocytes 0.4 10x3/uL (0.0-1.1); #Neutrophils 3.1 10x3/uL (1.5-8.4); %Basophils 0.2 % (0.0-2.0); %Eosinophils 4.5 % (0.0-6.0); %Lymphocytes 16.5 % (18.0-47.0); %Monocytes 9.7 % (0.0-10.0); %Neutrophils 68.9 % (40.0-75.0); Hematocrit 33.2 % (38.8-50.0); Mean Corpuscular HGB CONC 33.1 g/dL (32.0-36.0); Mean Corpuscular Volume 96.5 fl (81.2-95.1); Mean Platelet Volume 10.7 fl (7.4-10.4); Platelet Count 185 10x3/uL (150-450); RBC Distribution Width 17.2 % (11.5-14.5); Red Blood Cell (RBC) Count 3.44 10x6/uL (4.32-5.72); White Blood Cell (WBC) Count 4.4 10x3/uL (3.5-10.5)
[2023-10-31 00:04] LABS: INR-International Normal Ratio 1.2; PTT 30.8 sec (22.0-33.0); Prothrombin Time 12.4 sec (9.5-12.1)
[2023-10-31 00:12] LABS: ALT (SGPT) 15 U/L (8-55); AST (SGOT) 34 U/L (5-34); Albumin 3.4 g/dL (3.4-4.8); Alkaline Phosphatase 61 U/L (40-110); Anion Gap 13 mmol/L (10-20); BUN (Urea Nitrogen) 26 mg/dL (8.4-25.7); Bilirubin, Total 0.4 mg/dL (0.2-1.2); Calc. Creatinine Clearance 0 mL/min (70-130); Calcium 8.6 mg/dL (7.8-10.44); Carbon Dioxide 16 mmol/L (23-31); Chloride 112 mmol/L (98-107); Estimated GFR 35; Globulin 2.8 g/dL (2.4-3.5); Glucose 185 mg/dL (83-110); Lipase 45 U/L (8-78); Magnesium 1.1 mg/dL (1.6-2.6); Potassium 5.3 mmol/L (3.5-5.1); Protein, Total 6.2 g/dL (5.8-8.1); Sodium 136 mmol/L (136-145)
[2023-10-31] MEDS ORDERED: Ondansetron PF 4 MG/2 ML Vial IVP PRN (00:53)
[2023-10-31] MEDS ORDERED: HumaLOG 300 UNITS/3 ML VIAL SC PRN ×2 (00:53)
[2023-10-31] MEDS ORDERED: Acetaminophen 325 MG TAB PO PRN (00:53)
[2023-10-31] MEDS ORDERED: Acetaminophen 650 MG Suppository PR PRN (00:53)
[2023-10-31] MEDS ORDERED: Ondansetron ODT 4 MG TAB PO PRN (00:53)
[2023-10-31] MEDS ORDERED: Dextrose 5% in Water 1,000 ML IV PRN (00:53)
[2023-10-31] MEDS ORDERED: Glucagon 1 MG/ML KIT IM PRN (00:53)
[2023-10-31] MEDS ORDERED: Dextrose 50% Abboject 50 ML SYRINGE SLOW IVP PRN (00:53)
[2023-10-31 01:05] LABS: Bilirubin Neg (Negative); Blood, Urine Negative (Negative); Clarity Clear (Clear); Glucose, Urine (Dipstick) Normal (Negative); Ketone, Urine Negative (Negative); Leukocyte 25 (Negative); Nitrite Negative (Negative); Protein, Urine (Dipstick) 15 mg/dl (Neg-Trace); Urobilinogen Normal mg/dL (Less than 2)
[2023-10-31] MEDS ORDERED: Lactated Ringer's 1,000 ML IV SCH (01:15)
[2023-10-31 01:44] LABS: Bacteria/HPF Rare-Few HPF (None Seen); CAUTI Indications for Culture Pelvic or flank pain; RBC/HPF 0-3 HPF (0-3); Squamous Epithelial None Seen HPF (0-3); WBC/HPF 0-3 HPF (0-3)
[2023-10-31 01:46] LABS: Urine Culture Reflex No No
[2023-10-31] MEDS ORDERED: Zolpidem Tartrate 5 MG TAB ONE (02:14)
[2023-10-31 02:52] LABS: Digoxin 0.42 ng/mL (0.8-2.0)
[2023-10-31] MEDS ORDERED: Ipratropium/Albuterol 3 ML NEB NEB SCH (06:00)
[2023-10-31] MEDS ORDERED: Levothyroxine Sodium 75 MCG TAB PO SCH (06:00)
[2023-10-31] MEDS: Ipratropium/Albuterol 3 ML NEB NEB SCH ×2 (07:00→12:42)
[2023-10-31 07:15] LABS: Phosphorus 2.7 mg/dL (2.3-4.7)
[2023-10-31 07:18] LABS: Anion Gap 11 mmol/L (10-20); BUN (Urea Nitrogen) 26 mg/dL (8.4-25.7); Calc. Creatinine Clearance 0 mL/min (70-130); Calcium 8.6 mg/dL (7.8-10.44); Carbon Dioxide 19 mmol/L (23-31); Chloride 113 mmol/L (98-107); Estimated GFR 38; Glucose 90 mg/dL (83-110); Magnesium 1.6 mg/dL (1.6-2.6); Potassium 4.7 mmol/L (3.5-5.1); Sodium 138 mmol/L (136-145)
[2023-10-31] MEDS ORDERED: Carvedilol 3.125 MG TAB PO SCH (08:00)
[2023-10-31] MEDS ORDERED: Lorazepam 1 MG TAB ONE (08:43)
[2023-10-31] MEDS ORDERED: Digoxin 0.125 MG TAB ONE (08:44)
[2023-10-31] MEDS ORDERED: Pregabalin 75 MG CAP ONE (08:45)
[2023-10-31] MEDS ORDERED: Apixaban 2.5 MG TAB ONE (08:46)
[2023-10-31] MEDS ORDERED: Famotidine 20 MG TAB ONE (08:46)
[2023-10-31] MEDS ORDERED: Carvedilol 3.125 MG TAB ONE (08:47)
[2023-10-31] MEDS ORDERED: Ipratropium/Albuterol 3 ML NEB ONE (08:48)
[2023-10-31] MEDS ORDERED: Finasteride 5 MG TAB PO SCH (09:00)
[2023-10-31] MEDS ORDERED: Pregabalin 75 MG CAP PO SCH (09:00)
[2023-10-31] MEDS ORDERED: Famotidine 20 MG TAB PO SCH (09:00)
[2023-10-31] MEDS ORDERED: Lorazepam 1 MG TAB PO SCH (09:00)
[2023-10-31] MEDS ORDERED: Digoxin 0.125 MG TAB PO SCH (09:00)
[2023-10-31] MEDS ORDERED: Montelukast Sodium 10 mg Tablet PO SCH (09:00)
[2023-10-31] MEDS ORDERED: Apixaban 2.5 MG TAB PO SCH (09:00)
[2023-10-31] MEDS ORDERED: Lantus 1000 UNITS/10 ML VIAL SC SCH (09:00)
[2023-10-31 09:15] LABS: #Eosinphils 0.2 10x3/uL (0.0-0.5); #Monocytes 0.4 10x3/uL (0.0-1.1); #Neutrophils 3.5 10x3/uL (1.5-8.4); %Basophils 0.2 % (0.0-2.0); %Eosinophils 4.3 % (0.0-6.0); %Lymphocytes 21.9 % (18.0-47.0); %Monocytes 7.8 % (0.0-10.0); %Neutrophils 65.6 % (40.0-75.0); Hematocrit 33.6 % (38.8-50.0); Hemoglobin 11.3 g/dL (13.5-17.5); Mean Corpuscular HGB CONC 33.6 g/dL (32.0-36.0); Mean Corpuscular Hemoglobin 32.6 pg (27.0-33.0); Mean Corpuscular Volume 96.8 fl (81.2-95.1); Mean Platelet Volume 10.8 fl (7.4-10.4); Platelet Count 183 10x3/uL (150-450); RBC Distribution Width 17.3 % (11.5-14.5); Red Blood Cell (RBC) Count 3.47 10x6/uL (4.32-5.72); White Blood Cell (WBC) Count 5.3 10x3/uL (3.5-10.5)
[2023-10-31 10:03] VITALS: TEMP 97.6
[2023-10-31] MEDS ORDERED: Magnesium 2 GM/50 ML(in water) 2 GM in Premix 1 BAG IVPB SCH (11:45)
[2023-10-31] MEDS ORDERED: Magnesium 2 GM/50 ML BAG (IN WATER) ONE (11:57)
[2023-10-31] MEDS ORDERED: Albumin 25% 25 GM (100 mL) BOT IVPB SCH (12:00)
[2023-10-31 14:50] VITALS: BP 112/81
[2023-10-31] MEDS ORDERED: Mometasone Furoate 30 PUFF 220 MCG INH SCH (18:30)
[2023-10-31] MEDS ORDERED: Atorvastatin Calcium 10 MG TAB PO SCH (21:00)
[2023-10-31] MEDS ORDERED: Fenofibrate Nanocrystallized 145 MG TAB PO SCH (21:00)
[2023-10-31] MEDS ORDERED: Zolpidem Tartrate 5 MG TAB PO SCH (21:00)
[2023-11-01] MEDS ORDERED: Famotidine 20 MG TAB PO SCH (09:00)
== END 2023-10-31 14:40 | disposition home or self-care (01) ==
LOC: CSHERS 23:08 → CSHERHOLD 10-31 00:53
PROVIDERS: ADMIT Family Medicine; ATTEND Nurse Practitioner Family
DX: I48.91 Unspecified atrial fibrillation (principal); N17.9 Acute kidney failure, unspecified; I13.0 Hypertensive heart and chronic kidney disease with heart failure and stage 1 through stage 4 chronic kidney disease, or unspecified chronic kidney disease; E11.22 Type 2 diabetes mellitus with diabetic chronic kidney disease; E78.5 Hyperlipidemia, unspecified; F41.9 Anxiety disorder, unspecified; I25.5 Ischemic cardiomyopathy; J44.9 Chronic obstructive pulmonary disease, unspecified; D50.9 Iron deficiency anemia, unspecified; I50.20 Unspecified systolic (congestive) heart failure; I25.10 Atherosclerotic heart disease of native coronary artery without angina pectoris; N18.32 Chronic kidney disease, stage 3b; Z79.01 Long term (current) use of anticoagulants; Z88.0 Allergy status to penicillin; Z88.1 Allergy status to other antibiotic agents; Z88.8 Allergy status to other drugs, medicaments and biological substances; Z95.5 Presence of coronary angioplasty implant and graft; Z79.4 Long term (current) use of insulin; Z79.890 Hormone replacement therapy
CPT/HCPCS: 71045; 80048; 80162; 81001; 82962; 83690; 83735 ×2; 83880; 84100; 84484; 85025; 85610; 85730; 93005; 94640 ×2; 96375; 96376; G0378; P9047; 36415; 36416; 80053; 84443; 96365; J1815; J3475; J7120; J7620